=== PATIENT | male | born 1965 | race Hispanic/Latino ===

== ENCOUNTER 2017-09-23 08:15 | Emergency (ER) | payer BC ==
[~2017-09-23] VITALS: Ht 177.8 cm; Wt 104.3 kg
[~2017-09-23 08:15] MED LIST: ACTOS30 MG PO; FISH OIL300 MG PO; GEMFIBROZIL600 MG PO; JANUVIA25 MG PO; METFORMIN HCL500 MG PO; METOCLOPRAMIDE H5 MG PO
--- OUTSIDE RECORDS SUMMARY | 2017-09-23 08:18 | XMS REPORT ---
Author Author [facility] Address Unknown Phone Unavailable Care Team Providers Care Stock Lifter Name Role Phone MAXINE KUNZ Unavailable Unavailable Problems This patient has no known problems. Allergies, Adverse Reactions, Alerts This patient has no known allergies or adverse reactions. Medications This patient has no known medications. Results Test Description Test Time Test Comments Text Results Atomic Results Result Comments US RENAL RETROPERITONEAL COMP [place] [address] Patient Name: PERRY GOLDSMITH MR #: [id number] : 1965 Age/Sex: 51/M Req #: [id number] Adm Physician: Ordered by: MAXINE KUNZ MD Report #: [id number] Location: Room/Bed: Procedure: [id number] US/US RENAL RETROPERITONEAL COMP Exam Date: Exam Time: REPORT STATUS: Signed PROCEDURE: US RETROPERITONEAL ( KIDNEY ). COMPARISON: Patients [facility], CT, CT ABDOMEN/PELVIS WOW, 06/11/2016, 17:05. INDICATIONS: 6 MONTH F/U RENAL STONE EXTRACTION TECHNIQUE: Syed-scale and color sonographic images of the bilateral kidneys and bladder where obtained in transverse and longitudinal planes. FINDINGS: RIGHT KIDNEY: 11.1 cm, cortex 2.2 cm Cysts : 3.0 x 2.7 x 2.7 cm cystic, anechoic partially exophytic lesion in the inferolateral aspect (previously measured approximately 2.4 x 2.5 x 2[address] dated 06/11/2016) Solid masses: None Stones: None Hydronephrosis: None Echogenicity: Normal LEFT KIDNEY: 12.2 cm, cortex 2.2 cm Cysts: None Solid masses: 2.1 x 2.2 x 1.9 cm hyperechoic, non-shadowing cortical lesion in the inferomedial aspect Stones: None Hydronephrosis: None Echogenicity: Normal Bladder: No focal lesions. No wall thickening. Bilateral ureteral jets are identified. Prostate: 2.2 x 2.9 x 3.8 cm ( estimated volume 12.6 mL). CONCLUSION: 1. Normal bilateral renal size , and echogenicity. No hydronephrosis, stones, or obstruction. 2. Slight interval increase in size of simple cyst in the inferior pole right kidney. 3. 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 Julieta Plunkett M.D. Dictated by: Julieta Plunkett M.D. on 06/21/2017 at 18:44 Electronically approved by: Julieta Plunkett M.D. on 06/21/2017 at 18:44 Dictated By: JULIETA PLUNKETT MD 43 Transcribed By: CEE on 06/21/171843 COPY TO: MAXINE KUNZ MD
[2017-09-23] MEDS ORDERED: HYDROCODONE/APAP 7.5MG-325MG 1 EA TAB PO PRN (11:30)
[2017-09-23] MEDS ORDERED: CYCLOBENZAPRINE HCL 10 MG TAB PO ONE (11:30)
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
[2017-09-23 14:07] VITALS: BP 137/83
== END 2017-09-23 14:10 | disposition home or self-care (01) ==
LOC: ER 08:15
DX: M54.5 Low back pain (principal); V43.52XA Car driver injured in collision with other type car in traffic accident, initial encounter; Y92.488 Other paved roadways as the place of occurrence of the external cause; E11.9 Type 2 diabetes mellitus without complications
CPT/HCPCS: 72040; 72100; 99283